=== PATIENT | male | born 1960 | race Caucasian/White ===

== ENCOUNTER 2018-06-29 18:49 | Emergency (ER) | payer OTHER ==
--- NOTE | 2018-06-29 18:55 | ER Document Report ---
ED General - General Stated Complaint: BACK PAIN Time Seen by Provider: 06/29/18 18:55 Notes: Patient is a 58-year-old male with history of chronic low back pain that presents to the emergency department for chief complaint of worsening of his low back pain. Patient states that he has been taking Aleve for his back pain he has had it for very long time, over 30 years, the lead was working, up until more recently, it has been getting worse, he denies any numbness, saddle anesthesias or paresthesias, denies bowel or bladder incontinence or urinary retention. He he has been able to walk, but that makes the pain worse. He states yesterday, he has had some pain in his shoulder and neck, has had issues with his neck in the past as well, he felt numbness in his left shoulder as well. Denies any chest pain today, shortness of breath, difficulty breathing, nausea, vomiting or abdominal pain. Past Medical History: Chronic low back pain Past Surgical History: Denies surgical history Social History: Admits to smoking cigarettes daily, and drinking beer on a daily basis, denies illicit drug use. He is seen at the [facility]. Family History: Reviewed and noncontributory for presenting illness Allergies: Reviewed, see documented allergy list. REVIEW OF SYSTEMS: Other than noted above, the 12 point review of systems was reviewed with the patient and were negative, all pertinent findings are included in the HPI. PHYSICAL EXAMINATION: Vital signs reviewed, nursing noted reviewed. GENERAL: Patient appears somewhat disheveled, poor hygiene, and mildly intoxicated HEAD: Atraumatic, normocephalic. EYES: Eyes appear normal, extraocular movements intact, sclera anicteric, conjunctiva are normal. ENT: nares patent, oropharynx clear without exudates. Moist mucous membranes. NECK: Normal range of motion, supple without lymphadenopathy, positive Spurling's maneuver on the left, negative on the right LUNGS: Breath sounds clear to auscultation bilaterally and equal. No wheezes rales or rhonchi. HEART: Regular rate and rhythm without murmurs ABDOMEN: Soft, nontender, normoactive bowel sounds. No rebound, guarding, or rigidity. No masses appreciated. EXTREMITIES: Nontender, good range of motion, no pitting or edema. Normal gait in the emergency department. There is some discomfort with range of motion of the left shoulder, and crepitus with passive range of motion. Back: Tenderness to palpation of the paraspinal muscles of the lumbar spine, particularly in the left compared to the right. No midline tenderness. Negative straight leg raising bilaterally. NEUROLOGICAL: No focal neurological deficits. Moves all extremities spontaneously Motor and sensory grossly intact on exam. Normal patellar and Achilles tendon reflexes, +2/4 bilaterally. PSYCH: Normal mood, normal affect. SKIN: Warm, Dry, normal turgor, no rashes or lesions noted on exposed skin - Related Data Allergies/Adverse Reactions: No Known Allergies Allergy (Verified 02/08/14 05:04) Past Medical History - Social History Smoking Status: Current Every Day Smoker Family History: Reviewed & Not Pertinent - Immunizations Hx Diphtheria, Pertussis, Tetanus Vaccination: No Course - Re-evaluation Re-evalutation: Patient seen and examined vital signs reviewed. Patient was evaluated and treated as appropriate for the patient's presenting symptoms and complaint, with consideration of any critical or life threatening conditions that may be associated with their obtained history and exam as noted above. Patient was treated with IM Toradol, IM Depo-Medrol, and given a Lidoderm patch. Patient is mildly intoxicated and did not want to give him any narcotics, or muscle relaxers, to further sedate him. Discussed this with the patient, and he was agreeable. The patient was re-evaluated and was improved after treatment, still complaining of some pain. Evaluation was most consistent with chronic low back pain, with exacerbation, and neck pain, with radicular symptoms to the shoulder. [facility], [facility] and cool [facility], given a short prescription for a muscle relaxer to try at home. Plan of care was discussed with the patient at this point, after careful consideration I feel that that patient can be discharged from the emergency department, the patient was educated treatments and reasons to return to the emergency department based on their presumed diagnosis as noted above, they were advised to followup with a primary care physician in 2-3 days. Patient was agreeable to plan of care. *Note is created using voice recognition software and may contain spelling, syntax or grammatical errors. - EKG Interpretation by Me Additional EKG results interpreted by me: EKG demonstrates sinus rhythm with normal axis, QTC 460 ms, there is nonspecific T wave inversion in leads V2 and V3, minimally, I did compare this with prior EKG strips, but did not have formal EKG on this patient and at that time he did have T wave inversions noted in the V lead. Discharge - Discharge Clinical Impression: Neck pain Low back pain Qualifiers: Chronicity: chronic Back pain laterality: bilateral Sciatica presence: with sciatica Sciatica laterality: sciatica of left side Qualified Code(s): M54.42 - Lumbago with sciatica, left side Condition: Stable Disposition: HOME, SELF-CARE Instructions: Low Back Pain ([facility]) Additional Instructions: [facility], please take the medications as prescribed, avoid taking any medications with alcohol. you should also use warm compresses, or cool compresses to your lower back to help with alleviating her symptoms. He can do this for 20 minutes on 20 minutes off several times throughout the day. Prescriptions: Methocarbamol [Robaxin 500 mg Tablet] 500 mg PO TID PRN #15 tablet PRN Reason: back pain Referrals: KIM CACERES MD [ACTIVE STAFF] - Follow up in 3-5 days (orthopedic surgery )
[2018-06-29] MEDS ORDERED: KETOROLAC TROMETHAMINE 60 MG/2 ML SDV IM ONE (19:37)
[2018-06-29] MEDS ORDERED: LIDOCAINE 5% (700 MG) TRANSDERMAL ADH..PATCH TP ONE (20:45)
[2018-06-29] MEDS ORDERED: METHYLPREDNISOLONE ACETATE INJ 80 MG/1 ML VIAL IM ONE (20:45)
[2018-06-29 21:35] VITALS: BP 109/70
--- NOTE | 2018-06-29 23:44 | EKG REPORT ---
SEVERITY:- ABNORMAL ECG - SINUS RHYTHM NONSPECIFIC T ABNORMALITIES, ANT-LAT LEADS : Confirmed by: Narayan La 29-Jun-2018 23:44:04
== END 2018-06-29 21:35 | disposition home or self-care (01) ==
LOC: ER 18:49
DX: M54.42 Lumbago with sciatica, left side (principal); F17.210 Nicotine dependence, cigarettes, uncomplicated
CPT/HCPCS: 93005; 99284; 96372; 93010; J1885; J1040